=== PATIENT | male | born 1980 | race Hispanic/Latino ===

== ENCOUNTER 2018-06-12 08:32 | Emergency (ER) | payer BC ==
[~2018-06-12] VITALS: Ht 177.8 cm; Wt 108.9 kg
[2018-06-12] MEDS ORDERED: ASPIRIN 325 MG TAB PO ONE (09:45)
--- NOTE | 2018-06-12 10:18 | Diagnostic Imaging Report ---
EXAMINATION: PA and lateral views of the chest. COMPARISON: None CLINICAL HISTORY: Chest pain DISCUSSION: Lines/tubes: None. Lungs: The lungs are well inflated and clear. There is no evidence of pneumonia or pulmonary edema. Pleura: There is no pleural effusion or pneumothorax. Heart and mediastinum: The cardiomediastinal silhouette is normal. Bones and soft tissues: No acute bony abnormalities. Degenerative changes in the thoracic spine IMPRESSION: No acute cardiopulmonary abnormalities. Signed by: Dr. Itz Mcfarlane M.D. on 06/12/2018 10:15 AM
[2018-06-12 11:03] VITALS: BP 119/66
[2018-06-12] MEDS ORDERED: ALPRAZOLAM0.25 M1 PO (11:05)
== END 2018-06-12 11:04 | disposition home or self-care (01) ==
LOC: FSED 08:32
DX: R07.89 Other chest pain (principal); F41.1 Generalized anxiety disorder; I10 Essential (primary) hypertension; E11.65 Type 2 diabetes mellitus with hyperglycemia; E78.5 Hyperlipidemia, unspecified; Z79.84 Long term (current) use of oral hypoglycemic drugs
CPT/HCPCS: 71046; 80053; 84484; 85025; 85379; 93005; 99284

== ENCOUNTER → 2024-03-27 | Outpatient (REF) | payer BC ==
[~2024-03-27] MED LIST: ALPRAZOLAM0.25 M1 PO
== END ==
LOC: RAD 14:47
PROVIDERS: ATTEND Family Medicine
DX: M75.102 Unspecified rotator cuff tear or rupture of left shoulder, not specified as traumatic (principal)

== ENCOUNTER → 2024-05-12 | Outpatient (RCR) | payer BC | LOC: PT 04-18 10:40 | PROVIDERS: ATTEND Physician Assistant | DX: M25.512 Pain in left shoulder (principal); M25.612 Stiffness of left shoulder, not elsewhere classified; M62.81 Muscle weakness (generalized); M75.82 Other shoulder lesions, left shoulder ==

== ENCOUNTER → 2024-06-11 | Outpatient (RCR) | payer BC | LOC: PT 05-14 13:08 | PROVIDERS: ATTEND Physician Assistant | DX: M75.82 Other shoulder lesions, left shoulder (principal); M25.512 Pain in left shoulder; M25.612 Stiffness of left shoulder, not elsewhere classified; M62.81 Muscle weakness (generalized) ==